=== PATIENT | male | born 1955 | race African-American/Black ===

== ENCOUNTER 2020-04-08 22:08 | Emergency (ER) | payer MEDICARE ==
[~2020-04-08] VITALS: Ht 165.1 cm; Wt 80.7 kg
[2020-04-08] MEDS ORDERED: LIDOCAINE 1%/EPI 1:100,000 10 ML VIAL IJ ONE (23:15)
[2020-04-08] MEDS ORDERED: ACETAMINOPHEN WITH CODEINE 300/30MG TABLET PO ONE (23:15)
[2020-04-08] MEDS ORDERED: LIDOCAINE HCL/EPINEPHRINE 1%-EPI 1:100,000 20 ML VIAL INFIL NR (23:30)
[2020-04-09 01:30] VITALS: BP 125/80
== END 2020-04-09 01:31 | disposition home or self-care (01) ==
LOC: ER 22:08
DX: S01.01XA Laceration without foreign body of scalp, initial encounter (principal); W22.8XXA Striking against or struck by other objects, initial encounter; Y93.89 Activity, other specified; Y92.89 Other specified places as the place of occurrence of the external cause; Y99.8 Other external cause status; F41.9 Anxiety disorder, unspecified; F31.9 Bipolar disorder, unspecified; M79.18 Myalgia, other site
CPT/HCPCS: 12001; 73110; 73130; 99284; J3490